=== PATIENT | female | born 1955 | race Caucasian/White ===

== ENCOUNTER → 2017-05-03 | Outpatient (CLI) | payer BC ==
--- NOTE | 2017-05-03 08:13 | US ---
EXAMINATION TYPE: US gallbladder DATE OF EXAM: 05/03/2017 COMPARISON: NONE CLINICAL HISTORY: 61-year-old female K81.1 CHRONIC CHOLECYSTITIS. Abdomen pain and nausea x 10 months TECHNIQUE: Multiple sonographic images of the right upper quadrant are obtained. FINDINGS: Liver Length: 12.4 cm Gallbladder Wall: 0.3 cm CBD: 0.3 cm Right Kidney: 8.1 x 3.3 x 4.6 cm Pancreas: visualized portions wnl, head and tail limited by overlying bowel gas Liver: wnl Gallbladder: Extensive shadowing arising from the gallbladder fossa, probable gallbladder packed full of stones, visualized portion of wall appears upper limits of normal in thickness. Evidence for sonographic Sanchez's sign: yes CBD: visualized portions wnl, limited by overlying bowel gas Right Kidney: No hydronephrosis IMPRESSION: 1. Extensive cholelithiasis, borderline gallbladder wall thickening, and positive sonographic Sanchez sign. Clinical correlation will be needed for acute versus chronic cholecystitis. 2. No biliary ductal dilatation.
== END | disposition home or self-care (01) ==
LOC: RADUSWWP 06:59
PROVIDERS: ATTEND Surgery
DX: K80.20 Calculus of gallbladder without cholecystitis without obstruction (principal); K82.8 Other specified diseases of gallbladder
CPT/HCPCS: 76705

== ENCOUNTER 2017-05-10 09:00 | Day surgery (SDC) | payer BC ==
[2017-05-09 10:17] VITALS: BMI 15.9
[~2017-05-10 09:00] MED LIST: DEXAMETHASONE SOD PHOSPHATE 10 MG/ML 1 ML VIAL IV ONE; HEPARIN SODIUM,PORCINE 5,000 UNIT/ML 1 ML VIAL SQ ONE; HYDROmorphone 0.5 MG/0.5 ML SYRINGE IVP PRN; LACTATED RINGERS 1,000 ML IV SCH; LIDOCAINE 1% 20 ML VIAL (10MG/ML) FOR IV START INTRADERMA PRN; MIDAZOLAM 2 MG/2 ML VIAL IV PRN; SCOPOLAMINE 1.5MG/72HR PATCH TRANSDERM ONE; ceFAZolin IN SWFI 2 GM/20 ML SYRINGE IVP ONE
[2017-05-10] MEDS: ONDANSETRON 4 MG/2 ML VIAL IVP ONE ×2 (09:46→13:54)
[2017-05-10] MEDS ORDERED: FAMOTIDINE 20 MG/2 ML VIAL IV ONE (09:46)
--- NOTE | 2017-05-10 09:50 | P.GSHP ---
History of Present Illness H&P Date: 05/10/17 Chief Complaint: Right upper quadrant pain This is a 61-year-old female who's had a 10 month history of right upper quadrant pain. Her recent shown shows a gallbladder packed full of gallstones. She does today for laparoscopic cholecystectomy. Past Medical History Past Medical History: Hearing Disorder / Deafness, Mitral Valve Prolapse (MVP) Additional Past Medical History / Comment(s): Constant ringing in left ear, low BP. History of Any Multi-Drug Resistant Organisms: None Reported Additional Past Surgical History / Comment(s): Endoscopy, laproscopy. Past Anesthesia/Blood Transfusion Reactions: No Reported Reaction Past Psychological History: Depression Smoking Status: Former smoker Past Alcohol Use History: None Reported Additional Past Alcohol Use History / Comment(s): Smoked on and off for 1 yr, yrs ago. Past Drug Use History: Marijuana Additional Drug Use History / Comment(s): Used marijuana in her 20's. - Past Family History Mother Family Medical History: Cancer Additional Family Medical History / Comment(s): Hodgkins Medications and Allergies Home Medications Medication Instructions Recorded Confirmed Type Remisemine 2 tab PO Q12H 05/09/17 05/09/17 History Allergies Allergy/AdvReac Type Severity Reaction Status Date / Time codeine Allergy Nausea Verified 05/09/17 10:22 mold Allergy See Comment Verified 05/09/17 10:22 shellfish derived [Shellfish] Allergy Rash/Hives Verified 05/09/17 10:22 seafood Allergy Rash/Hives Uncoded 05/09/17 10:22 Surgical - Exam Vital Signs Temp Pulse Resp BP Pulse Ox 97.8 F 68 18 118/75 99 05/10/17 09:27 05/10/17 09:27 05/10/17 09:27 05/10/17 09:27 05/10/17 09:27 - General well developed, no distress - Eyes PERRL - ENT normal pinna - Neck no masses - Respiratory normal expansion - Cardiovascular Rhythm: regular - Abdomen Abdomen: soft, non tender Assessment and Plan Assessment: Cholecystitis Cholelithiasis We'll perform laparoscopic cholecystectomy.
[2017-05-10] MEDS ORDERED: ROCURONIUM BROMIDE 10 MG/ML 10 ML VIAL IV ONE (10:05)
[2017-05-10] MEDS ORDERED: PROPOFOL 10 MG/ML 20 ML VIAL IV ONE (10:05)
[2017-05-10] MEDS ORDERED: GLYCOPYRROLATE 0.2 MG/ML 2 ML VIAL ONE (10:05)
[2017-05-10] MEDS ORDERED: LIDOCAINE 1% INJ 10MG/ML (20 ML MDV) ONE (10:05)
[2017-05-10] MEDS ORDERED: fentaNYL (PF) 50 MCG/ML 2 ML AMP ONE (10:05)
[2017-05-10] MEDS ORDERED: SUCCINYLCHOLINE CHLORIDE 100 MG/5 ML SYR IV ONE (10:05)
[2017-05-10] MEDS ORDERED: MIDAZOLAM 2 MG/2 ML VIAL ONE (10:05)
[2017-05-10] MEDS ORDERED: NEOSTIGMINE 1 MG/ML 10 ML VIAL ONE (10:05)
[2017-05-10] MEDS ORDERED: KETOROLAC 30 MG/ML 1 ML VIAL ONE (10:05)
[2017-05-10] MEDS ORDERED: BUPIVACAINE (PF) 0.25% 30 ML VIAL SQ ONE (10:11)
--- NOTE | 2017-05-10 11:09 | P.OP ---
Date of Procedure: 05/10/17 Preoperative Diagnosis: Cholelithiasis Cholecystitis Postoperative Diagnosis: Cholelithiasis Cholecystitis Procedure(s) Performed: Laparoscopic cholecystectomy Anesthesia: AILYN Surgeon: Cas Rea Estimated Blood Loss (ml): 5 Pathology: other (Gallbladder) Condition: stable Disposition: PACU Description of Procedure: The patient was placed on the operating table. The patient received a general endotracheal tube anesthesia. The patients abdomen was prepped and draped in the usual sterile fashion. Through an infraumbilical stab incision, the fascia of the anterior abdominal wall was grasped with a pair of Kochers and then the Veress needle was placed in the peritoneal cavity. Position of the Veress needle was confirmed with positive drop test. The abdomen was then insufflated. After adequate insufflation, the 10 mm trocar was placed in the peritoneal cavity. Following this the laparoscope was placed in the peritoneal cavity. The patient was placed in the head-up, right side up position and then a 5 mm trocar was placed in the right lateral and right subcostal position under direct visualization. A 8 mm trocar was placed in the epigastric position. The gallbladder was packed with gallstones. The gallbladder was grasped in the fundus and infundibulum. Traction on the gallbladder was placed in the lateral and the cephalad positions. The triangle of Calot was visualized.. The cystic duct was bluntly dissected until the union of the cystic duct and common bile duct was seen. The cystic duct was then divided and sealed with the Harmonic scissors. A PDS Endoloop was then placed throughout the cystic duct stump. The cystic artery divided and sealed with the Harmonic scissors. The gallbladder was then removed from the liver bed using Harmonic scissors. The gallbladder was then extracted through the epigastric port site. Operative field was checked for any bleeding spots and Harmonic scissors was used to coagulate the liver bed. The abdomen was irrigated. The trocars were removed. The skin was closed using interrupted 3- 0 Vicryl suture. Dermabond dressing were applied. The patient tolerated the procedure well.
[2017-05-10 11:18] VITALS: TEMP 97
[2017-05-10] MEDS ORDERED: LACTATED RINGERS 1,000 ML IV ONE ×3 (11:38→11:39)
[2017-05-10 12:58] VITALS: RESP 18
[2017-05-10] MEDS ORDERED: HYDROcodone/APAP 7.5-325MG 1 EACH TAB PO ONE (13:35)
[2017-05-10 14:05] VITALS: BP 128/58; PULSE 59
== END 2017-05-10 16:25 | disposition home or self-care (01) ==
LOC: OR 09:00
PROVIDERS: ATTEND Surgery
DX: K80.10 Calculus of gallbladder with chronic cholecystitis without obstruction (principal); H91.90 Unspecified hearing loss, unspecified ear; I34.1 Nonrheumatic mitral (valve) prolapse; I95.9 Hypotension, unspecified; F32.9 Major depressive disorder, single episode, unspecified; Z79.899 Other long term (current) drug therapy; Z88.8 Allergy status to other drugs, medicaments and biological substances; Z88.5 Allergy status to narcotic agent; Z91.013 Allergy to seafood; Z87.891 Personal history of nicotine dependence
CPT/HCPCS: 88304; 47562; J1644; J1100; J2405; J0690